=== PATIENT | female | born 1945 | race Caucasian/White ===

== ENCOUNTER 2016-07-31 10:52 | Emergency (ER) | payer MEDICARE ==
--- NOTE | 2016-07-31 11:23 | ED ---
General Adult HPI - General Chief complaint: Dizziness Stated complaint: dizzy,nausea Time Seen by Provider: 07/31/16 11:04 Source: patient, RN notes reviewed, old records reviewed Mode of arrival: wheelchair Limitations: no limitations - History of Present Illness Initial comments: This is a 62-year-old female to the ER for evaluation. Patient coming in for evaluation multiple nonspecific complaints. Patient suffers from medical history consists of diabetes and fibromyalgia. She takes no medications. Her blood sugars have been running well controlled at this time. She denies any chest renaissance of breath. She woke up and felt very dizzy as wanted. The room spun around she felt nauseous but did not vomit. She then had a bowel movement followed by diarrhea and states that she felt even worse, even more dizziness and lightheaded. We will continue to spin around. Patient does not have difficulty walking, was improved with different position. Patient states she has denies chest pain but is concerned for her heart. She has no shortness of breath but concerned that because of her diabetes she may not have traditional symptoms. She has had stress tests in the past was positive did not follow through with have a heart catheterization. - Related Data Home Medications Medication Instructions Recorded Confirmed Aspirin 325 mg PO ONCE PRN 07/31/16 07/31/16 Aspirin [Adult Low Dose Aspirin EC] 81 mg PO DAILY 07/31/16 07/31/16 Cholecalciferol [Vitamin D3] 2,000 unit PO DAILY 07/31/16 07/31/16 Chromium Picolinate 200 mcg PO DAILY 07/31/16 07/31/16 Lecithin, Soy [Lecithin] 800 mg PO DAILY 07/31/16 07/31/16 Magnesium Malate 1,250mg 1 tab PO DAILY 07/31/16 07/31/16 Ubidecarenone [Co Q-10] 100 mg PO DAILY 07/31/16 07/31/16 Vitamin E (Dl,Tocopheryl Acet) 400 unit PO DAILY 07/31/16 07/31/16 [Vitamin E] Allergies Allergy/AdvReac Type Severity Reaction Status Date / Time No Known Allergies Allergy Verified 07/31/16 11:24 Review of Systems ROS Statement: Those systems with pertinent positive or pertinent negative responses have been documented in the HPI. ROS Other: All systems not noted in ROS Statement are negative. Past Medical History Past Medical History: Diabetes Mellitus, Fibromyalgia, Thyroid Disorder History of Any Multi-Drug Resistant Organisms: None Reported Additional Past Surgical History / Comment(s): nasal, cysto Past Psychological History: No Psychological Hx Reported Smoking Status: Never smoker Past Alcohol Use History: None Reported Past Drug Use History: None Reported General Exam Limitations: no limitations General appearance: alert, in no apparent distress Head exam: Present: atraumatic, normocephalic, normal inspection Eye exam: Present: normal appearance, PERRL, EOMI, nystagmus (Aft). Absent: scleral icterus, conjunctival injection, periorbital swelling ENT exam: Present: normal exam, mucous membranes moist Neck exam: Present: normal inspection. Absent: tenderness, meningismus, lymphadenopathy Respiratory exam: Present: normal lung sounds bilaterally. Absent: respiratory distress, wheezes, rales, rhonchi, stridor Cardiovascular Exam: Present: regular rate, normal rhythm, normal heart sounds. Absent: systolic murmur, diastolic murmur, rubs, gallop, clicks GI/Abdominal exam: Present: soft, normal bowel sounds. Absent: distended, tenderness, guarding, rebound, rigid Extremities exam: Present: normal inspection, full ROM, normal capillary refill. Absent: tenderness, pedal edema, joint swelling, calf tenderness Back exam: Present: normal inspection Neurological exam: Present: alert, oriented X3, CN II-XII intact Psychiatric exam: Present: normal affect, normal mood Skin exam: Present: warm, dry, intact, normal color. Absent: rash Course Vital Signs 07/31/16 07/31/16 07/31/16 10:57 11:39 12:39 Temperature 97 F L Pulse Rate 63 60 73 Respiratory 20 Rate Blood Pressure 154/72 166/75 175/77 O2 Sat by Pulse 99 99 Oximetry 07/31/16 12:52 Temperature Pulse Rate 74 Respiratory 16 Rate Blood Pressure 172/72 O2 Sat by Pulse 100 Oximetry - Reevaluation(s) Reevaluation #1: 07/31/16 13:28 Patient is refusing any medication arm symptom improvement Reevaluation #2: 07/31/16 13:28 Spoke with patient is 50 minutes regatta possibility of staying in the hospital for further cardiac evaluation as well as further neurological evaluation regarding vertigo. At this time patient is choosing not to stay in the hospital , questions are answered EKG Findings - EKG Comments: EKG Findings:: EKG shows normal sinus rate of 60, [place] 160, QRS 86, QTC 428 Medical Decision Making - Medical Decision Making 62 female here with nonspecific complaints, nonspecific symptoms. Dizziness and lightheadedness. Room spinning around. Vertigo. CT negative. Patient's able to ambulate without difficulty and can be discharged home - Lab Data Result diagrams: 07/31/16 11:38 07/31/16 11:38 Lab Results 07/31/16 07/31/16 07/31/16 Range/Units 11:38 11:38 11:38 WBC 8.5 (3.8-10.6) k/uL RBC 4.67 (3.80-5.40) m/uL Hgb 14.3 (11.4-16.0) gm/dL Hct 44.2 (34.0-46.0) % MCV 94.7 (80.0-100.0) fL MCH 30.7 (25.0-35.0) pg MCHC 32.4 (31.0-37.0) g/dL RDW 13.0 (11.5-15.5) % Plt Count 198 (150-450) k/uL Neutrophils % 81 % Lymphocytes % 13 % Monocytes % 5 % Eosinophils % 1 % Basophils % 0 % Neutrophils # 6.9 (1.3-7.7) k/uL Lymphocytes # 1.1 (1.0-4.8) k/uL Monocytes # 0.4 (0-1.0) k/uL Eosinophils # 0.1 (0-0.7) k/uL Basophils # 0.0 (0-0.2) k/uL PT (9.0-12.0) sec INR (<1.1) APTT (22.0-30.0) sec Sodium 141 (137-145) mmol/L Potassium 4.0 (3.5-5.1) mmol/L Chloride 106 (98-107) mmol/L Carbon Dioxide 25 (22-30) mmol/L Anion Gap 10 mmol/L BUN 14 (7-17) mg/dL Creatinine 0.87 (0.52-1.04) mg/dL Est GFR (MDRD) Af Amer >60 (>60 ml/min/1.73 sqM) Est GFR (MDRD) Non-Af >60 (>60 ml/min/1.73 sqM) Glucose 147 H (74-99) mg/dL Calcium 9.7 (8.4-10.2) mg/dL Phosphorus 3.0 (2.5-4.5) mg/dL Magnesium 1.8 (1.6-2.3) mg/dL Total Bilirubin 0.8 (0.2-1.3) mg/dL AST 43 H (14-36) U/L ALT 49 (9-52) U/L Alkaline Phosphatase 82 (38-126) U/L Total Creatine Kinase 43 (30-135) U/L CK-MB (CK-2) 1.0 (0.0-2.4) ng/mL CK-MB (CK-2) Rel Index 2.3 Troponin I <0.012 (0.000-0.034) ng/mL Total Protein 8.3 H (6.3-8.2) g/dL Albumin 4.8 (3.5-5.0) g/dL 07/31/16 Range/Units 11:38 WBC (3.8-10.6) k/uL RBC (3.80-5.40) m/uL Hgb (11.4-16.0) gm/dL Hct (34.0-46.0) % MCV (80.0-100.0) fL MCH (25.0-35.0) pg MCHC (31.0-37.0) g/dL RDW (11.5-15.5) % Plt Count (150-450) k/uL Neutrophils % % Lymphocytes % % Monocytes % % Eosinophils % % Basophils % % Neutrophils # (1.3-7.7) k/uL Lymphocytes # (1.0-4.8) k/uL Monocytes # (0-1.0) k/uL Eosinophils # (0-0.7) k/uL Basophils # (0-0.2) k/uL PT 10.4 (9.0-12.0) sec INR 1.0 (<1.1) APTT 21.6 L (22.0-30.0) sec Sodium (137-145) mmol/L Potassium (3.5-5.1) mmol/L Chloride (98-107) mmol/L Carbon Dioxide (22-30) mmol/L Anion Gap mmol/L BUN (7-17) mg/dL Creatinine (0.52-1.04) mg/dL Est GFR (MDRD) Af Amer (>60 ml/min/1.73 sqM) Est GFR (MDRD) Non-Af (>60 ml/min/1.73 sqM) Glucose (74-99) mg/dL Calcium (8.4-10.2) mg/dL Phosphorus (2.5-4.5) mg/dL Magnesium (1.6-2.3) mg/dL Total Bilirubin (0.2-1.3) mg/dL AST (14-36) U/L ALT (9-52) U/L Alkaline Phosphatase (38-126) U/L Total Creatine Kinase (30-135) U/L CK-MB (CK-2) (0.0-2.4) ng/mL CK-MB (CK-2) Rel Index Troponin I (0.000-0.034) ng/mL Total Protein (6.3-8.2) g/dL Albumin (3.5-5.0) g/dL - Radiology Data Radiology results: report reviewed (CT brain is negative for acute disease), image reviewed Disposition Clinical Impression: Dizziness, Vertigo Disposition: HOME SELF-CARE Condition: Good Instructions: Vertigo (ED), Benign Paroxysmal Positional Vertigo (ED) Referrals: Kevin Sheriff MD [STAFF PHYSICIAN] - 1-2 days
[2016-07-31] MEDS ORDERED: ONDANSETRON 4 MG/2 ML VIAL IVP STA (11:24)
[2016-07-31] MEDS ORDERED: SODIUM CHLORIDE 0.9% 1,000 ML IV STA ×2 (11:24)
[2016-07-31 11:47] LABS: Basophils % (A) 0 %; CH 31.1; Eosinophils # (A) 0.1 k/uL (0-0.7); Eosinophils % (A) 1 %; HCT 44.2 % (34.0-46.0); HDW 2.41; HGB 14.3 gm/dL (11.4-16.0); Luc # (Auto) 0.06; Luc % (Auto) 1; Lymphocytes # (A) 1.1 k/uL (1.0-4.8); Lymphocytes % (A) 13 %; MCH 30.7 pg (25.0-35.0); MCHC 32.4 g/dL (31.0-37.0); MCV 94.7 fL (80.0-100.0); Mean Platelet Volume 7.4; Monocytes # (A) 0.4 k/uL (0-1.0); Monocytes % (A) 5 %; Neutrophils # (A) 6.9 k/uL (1.3-7.7); Neutrophils % (A) 81 %; RBC 4.67 m/uL (3.80-5.40); WBC 8.5 k/uL (3.8-10.6); WBC (Perox) 7.99
[2016-07-31 11:56] LABS: ALT 49 U/L (9-52); AST 43 U/L (14-36); Alkaline Phosphatase 82 U/L (38-126); Anion Gap 10 mmol/L; Blood Urea Nitrogen 14 mg/dL (7-17); Calcium 9.7 mg/dL (8.4-10.2); Carbon Dioxide 25 mmol/L (22-30); Chloride 106 mmol/L (98-107); Glucose 147 mg/dL (74-99); Magnesium 1.8 mg/dL (1.6-2.3); Non-African American GFR(MDRD) >60 (>60 ml/min/1.73 sqM); Sodium 141 mmol/L (137-145); Total Bilirubin 0.8 mg/dL (0.2-1.3); Total Protein 8.3 g/dL (6.3-8.2)
[2016-07-31 12:16] LABS: Creatine Kinase 43 U/L (30-135)
[2016-07-31 12:28] LABS: Troponin I <0.012 ng/mL (0.000-0.034)
[2016-07-31 12:29] LABS: Prothrombin Time 10.4 sec (9.0-12.0)
--- NOTE | 2016-07-31 12:31 | CT ---
EXAMINATION TYPE: CT brain wo con DATE OF EXAM: 07/31/2016 12:22 PM HISTORY: Patient complains of dizziness and nausea today. CT DLP: 1064 mGycm. Automated Exposure Control for Dose Reduction was Utilized. TECHNIQUE: CT scan of the head is performed without contrast. COMPARISON: None. FINDINGS: There is no acute intracranial hemorrhage or midline shift identified. There is diffuse v entricular and sulcal prominence consistent with diffuse age-related cerebral atrophy. The globes ar e intact and the visualized sinuses are clear. IMPRESSION: No acute intracranial hemorrhage or midline shift. There is mild diffuse age-related ce rebral atrophy noted.
[2016-07-31 12:47] LABS: Partial Thromboplastin Time 21.6 sec (22.0-30.0)
[2016-07-31 13:38] VITALS: BP 176/81; PULSE 86; RESP 18; TEMP 97.5
== END 2016-07-31 13:38 | disposition home or self-care (01) ==
LOC: EC 10:52
DX: R42 Dizziness and giddiness (principal); R11.0 Nausea; R19.7 Diarrhea, unspecified; M79.7 Fibromyalgia; Z53.20 Procedure and treatment not carried out because of patient's decision for unspecified reasons; Z79.899 Other long term (current) drug therapy
CPT/HCPCS: 36415; 70450; 80053; 82550; 82553; 83735; 84100; 84484; 85025; 85610; 85730; 93005; 96360; 96361; 99285